=== PATIENT | male | born 1965 | race Caucasian/White ===

== ENCOUNTER 2017-11-10 01:31 | Emergency (ER) | payer OTHER ==
[~2017-11-10] VITALS: Ht 177.8 cm; Wt 65.8 kg
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
[2017-11-10 01:59] LABS: ABSOLUTE BASOPHIL COUNT 0 /CUMM (0.0-0.2); ABSOLUTE EOSINOPHIL COUNT 0 /CUMM (0.0-0.7); ABSOLUTE GRANULOCYTE CT 12.5 /CUMM (1.4-6.5); ABSOLUTE LYMPH COUNT 1.1 /CUMM (1.2-3.4); ABSOLUTE MONOCYTE COUNT 0.4 /CUMM (0.10-0.60); BASOPHIL % 0.3 % (0.0-2.0); EOSINOPHIL % 0.3 % (0-5); MEAN CORPUSCULAR HGB 32.2 PG (27.0-31.0); MEAN CORPUSCULAR HGB CONC 34.4 G/DL (33.0-37.0); MEAN CORPUSCULAR VOLUME 93.6 FL (80.0-94.0); MEAN PLATELET VOLUME 8.6 FL (7.4-10.4); PLATELET COUNT 227 /CUMM (130-400); RBC DISTRIBUTION WIDTH 15.3 % (11.5-14.5); RED BLOOD CELL CT 4.81 /CUMM (4.70-6.10)
[2017-11-10] MEDS ORDERED: IBUPROFEN800 M1 PO (02:06)
[2017-11-10 02:08] LABS: PT 9.9 SEC (9.4-12.5); PTT 26 SEC (25-37)
[2017-11-10 02:15] LABS: GRANULOCYTE % 88.9 % (42.2-75.2)
--- NOTE | 2017-11-10 05:26 | CT SCAN REPORT ---
EXAMINATION: CT ABDOMEN AND PELVIS WITH CONTRAST CLINICAL INFORMATION: Sudden onset severe at the gastric abdominal pain. Question perforation. COMPARISON: None TECHNIQUE: Multidetector volumetric imaging was performed of the abdomen and pelvis following IV administration of 95 mL of Optiray 320 intravenous contrast. Sagittal and coronal reformatted images were obtained on the technologist's workstation. DLP: 254 mGy-cm FINDINGS: LUNG BASES: Bibasilar subsegmental atelectasis. The visualized cardiac structures are unremarkable. LIVER, GALLBLADDER, AND BILIARY TREE: The liver is normal in size, shape, and attenuation. No focal hepatic lesion or biliary ductal dilatation is present. The gallbladder is unremarkable with no evidence of radiopaque gallstones, gallbladder wall thickening, or obvious pericholecystic inflammatory changes. PANCREAS: Unremarkable. SPLEEN: Unremarkable. ADRENAL GLANDS: Unremarkable. KIDNEYS AND URETERS: The kidneys are normal in size, shape, and attenuation. No hydronephrosis, hydroureter, or calculi seen. No perinephric stranding. BLADDER: The bladder is distended without wall thickening. GASTROINTESTINAL TRACT: The stomach appears unremarkable. The small bowel is normal in caliber without obstruction. There is fecalization of a segment of small bowel in the central abdomen, suggestive of slow transit. Normal appendix. No colonic wall thickening or inflammatory changes. No free air or free fluid. ABDOMINAL WALL: No significant hernia is appreciated. LYMPH NODES: Normal. VASCULAR: Normal caliber aorta. Mild atherosclerotic calcifications. PELVIC VISCERA: The prostate and seminal vesicles are unremarkable. OSSEOUS STRUCTURES: There is posterior fusion hardware in place from T11 through L3, bridging an L1 vertebral body compression fracture. Mild degenerative changes of the hips. IMPRESSION: No acute findings of the abdomen or pelvis. No evidence of perforation. No acute inflammatory changes are noted.
[2017-11-10] MEDS ORDERED: BENTYL10 M1 PO (06:19)
[2017-11-10] MEDS ORDERED: ZOFRAN ODT4 M1 PO (06:19)
[2017-11-10 06:27] VITALS: BP 130/89
== END 2017-11-10 07:19 ==
LOC: ERH 01:31
PROVIDERS: Emergency Medicine
DX: T62.91XA Toxic effect of unspecified noxious substance eaten as food, accidental (unintentional), initial encounter (principal)
CPT/HCPCS: 74177; 80307; 81003; 96374; G0480